=== PATIENT | male | born 1980 | race Caucasian/White ===

== ENCOUNTER → 2016-03-19 | Outpatient (CLI) | payer OTHER ==
--- NOTE | 2016-03-19 15:35 | US ---
EXAMINATION TYPE: US liver DATE OF EXAM: 03/19/2016 8:11 AM COMPARISON: NONE CLINICAL HISTORY: Abnormal liver function; H/O cholecystectomy 1999; H/O high cholesterol, on meds . EXAM MEASUREMENTS: Liver Length: 17.9 cm Gallbladder Wall: surgically absent CBD: 0.7 cm Right Kidney: 11.2 x 4.4 x 6.0 cm ANATOMY: TECHNOLOGIST IMPRESSION: liver attenuating indicative of fatty infiltrate Pancreas: Obscured by bowel gas Liver: attenuating Gallbladder: Surgically absent Evidence for sonographic Brock's sign: no CBD: 0.7 cm Right Kidney: No hydronephrosis or masses seen IMPRESSION: 1. Mild hepatomegaly at 17.9 cm.
== END | disposition home or self-care (01) ==
LOC: RADUSWWP 07:55
PROVIDERS: ATTEND Internal Medicine
DX: R79.89 Other specified abnormal findings of blood chemistry (principal)
CPT/HCPCS: 76705

== ENCOUNTER 2016-03-29 15:46 | Inpatient (IN) | payer MEDICAID, OTHER ==
--- NOTE | 2016-03-29 16:09 | ED ---
Psych HPI - General Chief Complaint: Psychiatric Symptoms Stated Complaint: Mental Health Time Seen by Provider: 03/29/16 15:54 Source: patient, RN notes reviewed Mode of arrival: ambulatory Limitations: no limitations - History of Present Illness Initial Comments: 35-year-old male presents emergency Department from urinalysis for psychiatric evaluation. Patient was threatening to hurt himself with his razor. Patient denies any homicidal thoughts. Patient states that he is admitted recently l for psychiatric problems. Patient states he was suicidal at that time. Patient states he self harm to self up his abdomen. Patient denies any physical complaints at this time. Patient states he does not feel right. Patient is taking his medications as prescribed. - Related Data Home Medications Medication Instructions Recorded Confirmed Levothyroxine Sodium [Synthroid] 50 mcg PO DAILY 02/25/16 03/29/16 Pravastatin Sodium [Pravachol] 20 mg PO DAILY 02/26/16 03/29/16 OXcarbazepine [Trileptal] 600 mg PO BID 03/29/16 03/29/16 Previous Rx's Medication Instructions Recorded Amantadine HCl [Symmetrel] 200 mg PO HS #60 cap 02/28/16 Citalopram Hydrobromide [CeleXA] 40 mg PO DAILY #30 tablet 02/28/16 traZODone HCL [Desyrel] 100 mg PO HS #30 tab 02/28/16 Allergies Allergy/AdvReac Type Severity Reaction Status Date / Time latex Allergy Intermediate Rash/Hives Verified 03/29/16 16:06 Penicillins Allergy Vomiting Verified 03/29/16 16:06 Review of Systems ROS Statement: Those systems with pertinent positive or pertinent negative responses have been documented in the HPI. ROS Other: All systems not noted in ROS Statement are negative. Past Medical History Past Medical History: Hyperlipidemia, Seizure Disorder, Thyroid Disorder Additional Past Medical History / Comment(s): depression History of Any Multi-Drug Resistant Organisms: None Reported Past Surgical History: Orthopedic Surgery Additional Past Surgical History / Comment(s): shoulder Past Psychological History: Depression Smoking Status: Never smoker Past Alcohol Use History: None Reported Past Drug Use History: None Reported General Exam Limitations: no limitations General appearance: alert, in no apparent distress Eye exam: Present: normal appearance, PERRL, EOMI. Absent: scleral icterus, conjunctival injection, periorbital swelling ENT exam: Present: normal exam, normal oropharynx, mucous membranes moist, TM's normal bilaterally Neck exam: Present: normal inspection, full ROM. Absent: tenderness, meningismus, lymphadenopathy Respiratory exam: Present: normal lung sounds bilaterally. Absent: respiratory distress, wheezes, rales, rhonchi, stridor Cardiovascular Exam: Present: regular rate, normal rhythm, normal heart sounds. Absent: systolic murmur, diastolic murmur, rubs, gallop, clicks GI/Abdominal exam: Present: soft, normal bowel sounds. Absent: distended, tenderness, guarding, rebound, rigid Neurological exam: Present: alert, oriented X3 Skin exam: Present: warm, dry, intact, normal color. Absent: rash Course Vital Signs 03/29/16 03/29/16 15:47 18:04 Temperature 97.8 F Pulse Rate 79 78 Respiratory 20 20 Rate Blood Pressure 158/84 132/65 O2 Sat by Pulse 99 98 Oximetry Medical Decision Making - Lab Data Lab Results 03/29/16 Range/Units 16:43 Urine Opiates Screen Not Detected (NotDetected) Ur Oxycodone Screen Not Detected (NotDetected) Urine Methadone Screen Not Detected (NotDetected) Ur Propoxyphene Screen Not Detected (NotDetected) Ur Barbiturates Screen Not Detected (NotDetected) U Tricyclic Antidepress Not Detected (NotDetected) Ur Phencyclidine Scrn Not Detected (NotDetected) Ur Amphetamines Screen Not Detected (NotDetected) U Methamphetamines Scrn Not Detected (NotDetected) U Benzodiazepines Scrn Not Detected (NotDetected) Urine Cocaine Screen Not Detected (NotDetected) U Marijuana (THC) Screen Not Detected (NotDetected) Disposition Clinical Impression: Depression, Suicidal ideation Disposition: ADMITTED IP TO THIS HOSP Condition: Stable
[2016-03-29] MEDS ORDERED: ZIPRASIDONE 20 MG VIAL IM PRN (21:42)
[2016-03-29] MEDS ORDERED: MAGNESIUM HYDROXIDE 2,400 MG/10 ML CUP PO PRN (21:42)
[2016-03-29] MEDS ORDERED: ACETAMINOPHEN TAB 325 MG TAB PO PRN (21:42)
[2016-03-29] MEDS ORDERED: MAG HYDROX/AL HYDROX/SIMETH 30 ML CUP PO PRN (21:42)
[2016-03-29 22:45] VITALS: BMI 29.5
[2016-03-30] MEDS ORDERED: LEVOTHYROXINE 50 MCG TAB PO SCH ×2 (06:30→15:47)
[2016-03-30] MEDS: PRAVASTATIN SODIUM 20 MG TAB PO SCH (09:59)
[2016-03-30] MEDS: OXcarbazepine 300 MG TAB PO SCH ×2 (10:00→21:54)
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
[2016-03-30] MEDS: buPROPion SR 150 MG TABLET.ER PO SCH (10:56)
[2016-03-30 12:06] LABS: Basophils # (A) 0.1 k/uL (0-0.2); Basophils % (A) 1 %; Eosinophils # (A) 0.1 k/uL (0-0.7); Eosinophils % (A) 1 %; HCT 49.3 % (39.0-53.0); HDW 2.37; HGB 16.6 gm/dL (13.0-17.5); Luc # (Auto) 0.09; Luc % (Auto) 1; Lymphocytes # (A) 1.9 k/uL (1.0-4.8); Lymphocytes % (A) 27 %; MCH 31.8 pg (25.0-35.0); MCHC 33.6 g/dL (31.0-37.0); MCV 94.6 fL (80.0-100.0); Mean Platelet Volume 8.3; Monocytes # (A) 0.4 k/uL (0-1.0); Monocytes % (A) 6 %; Neutrophils # (A) 4.5 k/uL (1.3-7.7); Neutrophils % (A) 64 %; RBC 5.21 m/uL (4.30-5.90); RDW 12.2 % (11.5-15.5); WBC (Perox) 7.22
[2016-03-30 12:23] LABS: ALT 57 U/L (21-72); AST 59 U/L (17-59); Alkaline Phosphatase 99 U/L (38-126); Anion Gap 12 mmol/L; Blood Urea Nitrogen 13 mg/dL (9-20); Calcium 10.7 mg/dL (8.4-10.2); Carbon Dioxide 29 mmol/L (22-30); Chloride 99 mmol/L (98-107); Glucose 105 mg/dL (74-99); Non-African American GFR(MDRD) >60 (>60 ml/min/1.73 sqM); Potassium 4.8 mmol/L (3.5-5.1); Sodium 140 mmol/L (137-145); Total Bilirubin 0.8 mg/dL (0.2-1.3); Total Protein 8.8 g/dL (6.3-8.2)
--- NOTE | 2016-03-30 17:02 | CONS ---
DATE OF CONSULTATION: REASON FOR CONSULTATION: Medical clearance. Patient is a 35-year-old pleasant gentleman is admitted to psychiatric floor for agitation and acute psychosis. Patient at this point of time does not have any medical complaints at this point of time. Patient denied any fever, chills. Patient denied nausea, vomiting. His significant medical problems include hyperlipidemia, seizure disorder, hypothyroidism. I obtained a TSH which was essentially within normal limits and patient does not have any recent seizures. Patient's creatinine is elevated to 1.23. His baseline creatinine is around 1.1. Patient is probably mildly dehydrated. I encouraged him to drink water p.o. REVIEW OF SYSTEMS: CONSTITUTIONAL: No fever, no malaise, no fatigue. HEENT: No recent visual problems or hearing problems. Denied any sore throat. CARDIOVASCULAR: No chest pain, orthopnea, PND, no palpitations, no syncope. PULMONARY: No shortness of breath, no cough, no hemoptysis. GASTROINTESTINAL: No diarrhea, no nausea, no vomiting, no abdominal pain. Normoactive bowel sounds. NEUROLOGICAL: No headaches, no weakness, no numbness. HEMATOLOGICAL: Denies any bleeding or petechiae. GENITOURINARY: Denies any burning micturition, frequency, or urgency. MUSCULOSKELETAL/RHEUMATOLOGICAL: Denies any joint pain, swelling, or any muscle pain. ENDOCRINE: Denies any polyuria or polydipsia. The rest of the 14 point review of systems is negative. PAST MEDICAL HISTORY: Hyperlipidemia, seizure disorder, hypothyroidism, depression, orthopedic surgery in the past. SOCIAL HISTORY: Patient denies smoking, alcohol abuse or any drug abuse. FAMILY HISTORY: Denied any family history of hypertension, diabetes mellitus or stroke or CVAs or myocardial infarction in the family. PHYSICAL EXAMINATION: VITAL SIGNS: Temperature 98.2, pulse 64, respiratory rate of 15, blood pressure 139/70, saturating at 96% room air. GENERAL: The patient is alert and oriented x3, not in any acute distress. Well developed, well nourished. HEENT: Pupils are round and equally reacting to light. EOMI. No scleral icterus. No conjunctival pallor. Normocephalic, atraumatic. No pharyngeal erythema. No thyromegaly. CARDIOVASCULAR: S1 and S2 present. No murmurs, rubs, or gallops. PULMONARY: Chest is clear to auscultation, no wheezing or crackles. ABDOMEN: Soft, nontender, nondistended, normoactive bowel sounds. No palpable organomegaly. MUSCULOSKELETAL: No joint swelling or deformity. EXTREMITIES: No cyanosis, clubbing, or pedal edema. NEUROLOGICAL: Gross neurological examination did not reveal any focal deficits. SKIN: No rashes. LABORATORY DATA: CBC, CMP abnormal for mildly elevated creatinine of 1.23. ASSESSMENT AND PLAN: 1. Acute psychosis. Management as per primary service. 2. Acute renal failure, probably due to intravascular volume depletion. Patient encouraged to drink water p.o. 3. Hypothyroidism. Continue with levothyroxine at present dose. TSH is essentially within normal limits. 4. Hyperlipidemia. Continue with pravastatin. 5. Seizure disorder for which patient is on Trileptal. Patient is tolerating well at this point of time. Recommend to continue that and patient does not have any recent seizures. 6. We will sign off at this point of time. Please call us back if needed with any questions.
[2016-03-30] MEDS: traZODone HCL 100 MG TAB PO SCH (21:54)
[2016-03-30] MEDS: AMANTADINE HCL 100 MG CAP PO SCH (21:54)
[2016-03-31] MEDS: LEVOTHYROXINE 50 MCG TAB PO SCH (06:08)
[2016-03-31] MEDS: buPROPion SR 150 MG TABLET.ER PO SCH (09:17)
[2016-03-31] MEDS: OXcarbazepine 300 MG TAB PO SCH ×2 (09:18→21:41)
[2016-03-31] MEDS: PRAVASTATIN SODIUM 20 MG TAB PO SCH (09:18)
--- NOTE | 2016-03-31 15:16 | P.PN ---
Progress Note - Text Interval history: Patient is seen in cross coverage today for Dr. Stubbs. He does report that he is feeling better. He is now on Wellbutrin XL instead of Celexa. He states he has been on Wellbutrin in the past. He slept about 6 hours last night. He does not seem to voice any adverse psychotropic medication side effects. Mental status exam: He is alert and cooperative with the interview. Overall his affect is restricted. His mood is improved. He denies any thoughts of harm to self or others. There is no active evidence of psychosis or agitation. His thought processes are organized. Plan: Patient will be maintained on current psychotropic medication regimen. We 'll continue to cover this patient for Dr. Stubbs through the weekend. We' ll continue to monitor regarding any thoughts of suicide. Monitor for any medication side effects.
[2016-03-31] MEDS: traZODone HCL 100 MG TAB PO SCH (21:41)
[2016-03-31] MEDS: AMANTADINE HCL 100 MG CAP PO SCH (21:41)
[2016-04-01] MEDS: LEVOTHYROXINE 50 MCG TAB PO SCH (06:04)
[2016-04-01] MEDS: OXcarbazepine 300 MG TAB PO SCH ×2 (09:47→21:01)
[2016-04-01] MEDS: buPROPion SR 150 MG TABLET.ER PO SCH (09:47)
[2016-04-01] MEDS: PRAVASTATIN SODIUM 20 MG TAB PO SCH (09:47)
--- NOTE | 2016-04-01 14:01 | P.PN ---
Progress Note - Text Interval history: Patient reports that his mood was down last night, but does feel like his mood is doing better today. He describes some lightheadedness he feels some relation to the Wellbutrin but it appears to be tolerable. We did discuss the side effects can improve as he continues to adjust to the medication. He did seem to sleep last night and appears to be eating well. He does describe symptoms prior to coming in the hospital that he was having thoughts of stabbing himself and was hitting himself in the face. He is seen in cross coverage today for Dr. Stubbs. Mental status exam: He is alert and cooperative with the interview. His speech is fluent, not rapid or pressured. Thought processes organized. His mood he describes feeling down last night but appears to be better today. He denies any thoughts of harm to self or others. No evidence of active psychosis or agitation. Plan: We'll maintain current psychotropic medication regimen. Continue to monitor for medication side effects. Continue to monitor regarding any thoughts of suicide. Dr. Stubbs to resume care this patient starting tomorrow.
[2016-04-01] MEDS: traZODone HCL 100 MG TAB PO SCH (21:01)
[2016-04-01] MEDS: AMANTADINE HCL 100 MG CAP PO SCH (21:01)
[2016-04-02] MEDS: LEVOTHYROXINE 50 MCG TAB PO SCH (05:43)
[2016-04-02 06:16] VITALS: TEMP 97.5
[2016-04-02] MEDS: OXcarbazepine 300 MG TAB PO SCH (08:43)
[2016-04-02] MEDS: buPROPion SR 150 MG TABLET.ER PO SCH (08:43)
[2016-04-02] MEDS: PRAVASTATIN SODIUM 20 MG TAB PO SCH (08:43)
[2016-04-02 08:47] VITALS: BP 130/69; PULSE 69; RESP 18
--- NOTE | 2016-04-04 09:55 | DS ---
DATE OF ADMISSION: 03/29/2016 DATE OF DISCHARGE: 04/02/2016 PSYCHIATRY DISCHARGE SUMMARY: ADMISSION AND DISCHARGE DIAGNOSES: 1. Depressive disorder. 2. Adjustment disorder with disturbance of mood and behavior. 3. Antisocial personality disorder. 4. Seizure disorder. HISTORY OF PRESENTING ILLNESS: The patient presented to the emergency department in referral from his counselor at [facility] and his data officer. He was having increasing problems with anxiety, anger and agitation. He was indicating that he felt frustrated over rules at the home that he felt were arbitrary. He made a threat that he would use a razor or shards of plastic to cut himself. The unit was informed that upon discharge the patient would be going to [facility] for parole violation of "intimidating staff at [facility]". Patient was having problems with sleep. He had depressed mood with loss of motivation, energy and interest. He had noted this was his fourth psychiatric hospitalization. He was discharged February 28, 2016 with a similar diagnosis. He had recently been released from long term just prior to the February admission. He denied use of alcohol or drugs and reported that he had never been in a substance abuse program. There was significant family history of psychiatric and substance abuse problems mainly with his mother and a cousin. He was on parole for assault on a police service technician and third offense of domestic violence. He was released from long term in February 21, 2016. MEDICAL HISTORY AND PHYSICAL EXAM: As per medical consultation of Dr. Red dated 03/30/2016. MENTAL STATUS: Patient had fair eye contact. He had depressed facial expression. He was alert and oriented. There was slight psychomotor retardation. There were no abnormal movements. His affect was depressed and nonreactive. He denied suicide or self harm thoughts. He had feelings of hopelessness and helplessness. There were no psychotic symptoms. DIAGNOSTIC STUDY: CBC was unremarkable. Hemoglobin 16.6, MCV 94.6. Comprehensive metabolic profile was unremarkable. His glucose of 105. Creatinine 1.2. TSH 2.5. Urine drug screen negative. COURSE OF HOSPITALIZATION: Patient was admitted for comprehensive medical, psychiatric and psychosocial evaluation. He was continued on Trileptal 600 mg twice a day and trazodone 100 mg for sleep. He was also on amantadine 200 mg at bedtime. He was started on Wellbutrin SR 150 mg a day and Celexa 40 mg a day, which he had been on previously. During the course of his hospital stay, he did fairly well. He showed improvement in his mood. He was sleeping fairly well. Symptoms of depression seem to recede fairly reasonably. He tolerated his psychotropic medications well. He identified the plans for discharge. He understood that he would be going back to [facility], though he felt that he had legitimate concerns about issues that transpired at [facility]. His plan was to talk to his data officer. He anticipated a short [facility] term and then aim to potentially get back into a half-way house. CONDITION AT DISCHARGE: The patient was stable at discharge. His mood was improved. He was identifying no thoughts of harm to self or others. He tolerated his medications well. RECOMMENDATIONS AND FOLLOWUP: Patient was referred to police custody as per his data officer. DISCHARGE HER MEDICATIONS: 1. Celexa 40 mg a day. 2. Wellbutrin SR 150 mg a day. 3. Trileptal 600 mg twice a day. 4. Trazodone 100 mg at bedtime. 5. Amantadine 200 mg at bedtime. 6. Pravachol 20 mg a day. The patient was discharged to police custody.
== END 2016-04-02 13:01 | DRG 881 ==
LOC: EC 15:46 → 3MHU 19:25
PROVIDERS: ADMIT Psychiatry & Neurology Psychiatry; ATTEND Psychiatry & Neurology Psychiatry
DX: F32.9 Major depressive disorder, single episode, unspecified (principal); N17.9 Acute kidney failure, unspecified; R45.851 Suicidal ideations; M41.9 Scoliosis, unspecified; G40.409 Other generalized epilepsy and epileptic syndromes, not intractable, without status epilepticus; F60.2 Antisocial personality disorder; F43.24 Adjustment disorder with disturbance of conduct; E03.9 Hypothyroidism, unspecified; E78.5 Hyperlipidemia, unspecified; E86.0 Dehydration; R74.8 Abnormal levels of other serum enzymes; F41.9 Anxiety disorder, unspecified; E78.00 Pure hypercholesterolemia, unspecified; G25.81 Restless legs syndrome; Z91.5 Personal history of self-harm; Z65.3 Problems related to other legal circumstances; Z88.0 Allergy status to penicillin; Z91.040 Latex allergy status; Z79.899 Other long term (current) drug therapy; Z81.8 Family history of other mental and behavioral disorders; Z81.3 Family history of other psychoactive substance abuse and dependence
CPT/HCPCS: 80053; 80306; 82075; 84443; 85025; 99284

== ENCOUNTER 2016-07-10 22:53 | Emergency (ER) | payer MEDICAID, OTHER ==
[2016-07-10 23:13] VITALS: RESP 16; TEMP 97.8
--- NOTE | 2016-07-10 23:17 | ED ---
General Adult HPI - General Chief complaint: Overdose Stated complaint: overdose Time Seen by Provider: 07/10/16 23:03 Source: patient, RN notes reviewed, old records reviewed Mode of arrival: EMS Limitations: no limitations - History of Present Illness Initial comments: This is a 36-year-old male here today for evaluation. This patient presents for evaluation of possible overdose, overdose unintentional. Patient has history of psychiatric disease, tach extracted translocated or to today, that is abraded to harm himself. Patient states he was is throughout the day and when he got before is that he took one of his medication, patient currently states he feels little bit tired but no other complaints. Denies any other drugs or alcohol - Related Data Previous Rx's Medication Instructions Recorded Amantadine HCl [Symmetrel] 200 mg PO HS 30 Days 04/02/16 Citalopram Hydrobromide [CeleXA] 40 mg PO DAILY 30 Days 04/02/16 OXcarbazepine [Trileptal] 600 mg PO BID 30 Days 04/02/16 Pravastatin Sodium [Pravachol] 20 mg PO DAILY #30 tab 04/02/16 buPROPion SR [Wellbutrin SR] 150 mg PO DAILY 30 Days 04/02/16 traZODone HCL [Desyrel] 100 mg PO HS 30 Days 04/02/16 Allergies Allergy/AdvReac Type Severity Reaction Status Date / Time latex Allergy Intermediate Rash/Hives Verified 07/10/16 23:12 Penicillins Allergy Vomiting Verified 07/10/16 23:12 Review of Systems ROS Statement: Those systems with pertinent positive or pertinent negative responses have been documented in the HPI. ROS Other: All systems not noted in ROS Statement are negative. Past Medical History Past Medical History: Hyperlipidemia, Seizure Disorder, Thyroid Disorder Additional Past Medical History / Comment(s): depression History of Any Multi-Drug Resistant Organisms: None Reported Past Surgical History: Orthopedic Surgery Additional Past Surgical History / Comment(s): right shoulder Past Psychological History: Depression Smoking Status: Never smoker Past Alcohol Use History: None Reported Past Drug Use History: None Reported General Exam Limitations: no limitations General appearance: alert, in no apparent distress Head exam: Present: atraumatic, normocephalic, normal inspection Eye exam: Present: normal appearance, PERRL, EOMI. Absent: scleral icterus, conjunctival injection, periorbital swelling ENT exam: Present: normal exam, mucous membranes moist Neck exam: Present: normal inspection. Absent: tenderness, meningismus, lymphadenopathy Respiratory exam: Present: normal lung sounds bilaterally. Absent: respiratory distress, wheezes, rales, rhonchi, stridor Cardiovascular Exam: Present: regular rate, normal rhythm, normal heart sounds. Absent: systolic murmur, diastolic murmur, rubs, gallop, clicks GI/Abdominal exam: Present: soft, normal bowel sounds. Absent: distended, tenderness, guarding, rebound, rigid Extremities exam: Present: normal inspection, full ROM, normal capillary refill. Absent: tenderness, pedal edema, joint swelling, calf tenderness Back exam: Present: normal inspection Neurological exam: Present: alert, oriented X3, CN II-XII intact Psychiatric exam: Present: normal affect, normal mood Skin exam: Present: warm, dry, intact, normal color. Absent: rash Course Vital Signs 07/10/16 23:05 Temperature 97.8 F Pulse Rate 55 L Respiratory 16 Rate Blood Pressure 113/65 O2 Sat by Pulse 95 Oximetry - Reevaluation(s) Reevaluation #1: 07/10/16 23:16 Patient denies feeling suicidal at this time. Denies taking any medications and suicide attempt Medical Decision Making - Medical Decision Making 36-year-old ER for evaluation, patient coming in for evaluation of potential overdose, unintentional, patient states he took an extra trazodone and he normally takes. Patient is asymptomatic at this time vital signs are normal and stable, awake and alert and patient can be discharged home Disposition Clinical Impression: Accidental drug ingestion Disposition: HOME SELF-CARE Condition: Good Instructions: Trazodone (By mouth) Referrals: Phillip Wooten MD [Primary Care Provider] - 1-2 days
[2016-07-11 00:44] VITALS: BP 129/79; PULSE 63
== END 2016-07-11 00:44 | disposition home or self-care (01) ==
LOC: EC 22:53
DX: T43.211A Poisoning by selective serotonin and norepinephrine reuptake inhibitors, accidental (unintentional), initial encounter (principal); Z88.0 Allergy status to penicillin; Z91.040 Latex allergy status
CPT/HCPCS: 99284

== ENCOUNTER 2021-08-14 15:23 | Emergency (ER) | payer MEDICAID, OTHER ==
--- NOTE | 2021-08-14 18:34 | ED ---
General Adult HPI - General Chief complaint: Skin/Abscess/Foreign Body Stated complaint: Skin Rash hands/feet Source: patient Mode of arrival: ambulatory Limitations: no limitations - History of Present Illness Initial comments: A 1-year-old male presents emergency department for a rash that has been going on for 1 week. States that it started while he was incarcerated. It is located on the dorsal aspects of his bilateral hands and extends up his forearms. Rash is also noted on the patient's ankles and calf. No palmar or plantar lesions noted. States that they are extremely pruritic. He was given permethrin cream and hydrocortisone cream for treatment. States that he has not had any relief. Denies any new exposures. No fevers or shortness of breath. No other a lleviating, precipitating or modifying factors - Related Data Previous Rx's Medication Instructions Recorded Citalopram Hydrobromide [CeleXA] 40 mg PO DAILY 30 Days tablet 04/02/16 OXcarbazepine [Trileptal] 600 mg PO BID 30 Days tab 04/02/16 Pravastatin Sodium [Pravachol] 20 mg PO DAILY #30 tab 04/02/16 amantadine HCL [Symmetrel] 200 mg PO HS 30 Days cap 04/02/16 buPROPion SR [Wellbutrin SR] 150 mg PO DAILY 30 Days tablet.er 04/02/16 traZODone HCL [Desyrel] 100 mg PO HS 30 Days tab 04/02/16 Permethrin 5% Cream [Elimite] 1 applic TOPICAL ONCE #60 gram 08/14/21 Triamcinolone 0.1% Cream [Kenalog 1 applicatio TOPICAL TID #30 gram 08/14/21 0.1% Cream] diphenhydrAMINE [Benadryl] 50 mg PO QID PRN #30 capsule 08/14/21 predniSONE [Deltasone] 20 mg PO BID #10 tab 08/14/21 Allergies Allergy/AdvReac Type Severity Reaction Status Date / Time latex Allergy Intermediate Rash/Hives Verified 08/14/21 16:53 Penicillins Allergy Vomiting Verified 08/14/21 16:53 Review of Systems ROS Statement: Those systems with pertinent positive or pertinent negative responses have been documented in the HPI. ROS Other: All systems not noted in ROS Statement are negative. Past Medical History Past Medical History: Hyperlipidemia, Seizure Disorder, Thyroid Disorder Additional Past Medical History / Comment(s): depression History of Any Multi-Drug Resistant Organisms: None Reported Past Surgical History: Orthopedic Surgery Additional Past Surgical History / Comment(s): shoulder Past Psychological History: Depression Smoking Status: Never smoker Past Alcohol Use History: None Reported Past Drug Use History: None Reported General Exam Limitations: no limitations Course Vital Signs 08/14/21 08/14/21 16:38 18:50 Temperature 97.7 F 98.4 F Pulse Rate 55 L 59 L Respiratory 20 18 Rate Blood Pressure 130/79 119/76 O2 Sat by Pulse 100 99 Oximetry Medical Decision Making - Medical Decision Making Upon arrival the patient was placed into hallway 22. A thorough history and physical exam was performed. Patient's rash does appear to be consistent with either contact dermatitis or scabies. He'll be given prescription for Kenalog cream, permethrin cream, prednisone and Benadryl. He is to take the Benadryl and prednisone as prescribed. Additionally use the Kenalog cream. He does not have improvement in his rash and 72 hours he is to use the permethrin cream again. He is given follow-up information for the [facility]. He'll be given a follow-up with him for further management return for any new or worsening symptoms per patient agreed and was discharged home in stable condition Disposition Clinical Impression: Scabies, Contact dermatitis Disposition: HOME SELF-CARE Condition: Stable Instructions (If sedation given, give patient instructions): Acute Rash (ED) Additional Instructions: Please use the prednisone, Benadryl and Kenalog cream as directed. If you do not have improvement in your rash within 72 hours, used the permethrin cream. Follow up with the [facility] for further evaluation and return for any new or worsening symptoms Prescriptions: diphenhydrAMINE [Benadryl] 50 mg PO QID PRN #30 capsule PRN Reason: Itching predniSONE [Deltasone] 20 mg PO BID #10 tab Permethrin 5% Cream [Elimite] 1 applic TOPICAL ONCE #60 gram Triamcinolone 0.1% Cream [Kenalog 0.1% Cream] 1 applicatio TOPICAL TID #30 gram Is patient prescribed a controlled substance at d/c from ED?: No Referrals: None,Stated [Primary Care Provider] - 1-2 days Angel Yin MD [STAFF PHYSICIAN] - 1-2 days Time of Disposition: 18:34
[2021-08-14 18:51] VITALS: BP 119/76; PULSE 59; RESP 18; TEMP 98.4
== END 2021-08-14 18:51 | disposition home or self-care (01) ==
LOC: EC 15:23
DX: B86 Scabies (principal); L25.9 Unspecified contact dermatitis, unspecified cause; E78.5 Hyperlipidemia, unspecified; G40.909 Epilepsy, unspecified, not intractable, without status epilepticus; F32.A Depression, unspecified; Z79.899 Other long term (current) drug therapy; Z88.0 Allergy status to penicillin
CPT/HCPCS: 99282

== ENCOUNTER 2021-09-21 13:23 | Emergency (ER) | payer OTHER ==
[2021-09-21] MEDS ORDERED: diphenhydrAMINE 50 MG CAP PO STA (13:51)
[2021-09-21] MEDS ORDERED: predniSONE 50 MG TAB PO STA (13:51)
--- NOTE | 2021-09-21 13:58 | ED ---
General Adult HPI - General Chief complaint: Skin/Abscess/Foreign Body Stated complaint: [facility] - allergic reaction Time Seen by Provider: 09/21/21 13:30 Source: patient, RN notes reviewed, old records reviewed Mode of arrival: ambulatory Limitations: no limitations - History of Present Illness Initial comments: Patient comes in complaining of a rash on bilateral arms and the right side of his neck and trapezius area. Patient states he was carrying using carpet at work and that gave him this rash. Patient states it's irritated and causes him to itch quite a bit. Patient has no other rash anywhere else. Patient denies any difficulty breathing or swallowing. Patient denies any swelling to the throat. Patient states he only place he has a rash as were his hands and neck came in contact with the carpet. Patient denies any fever chills or cough. - Related Data Previous Rx's Medication Instructions Recorded Citalopram Hydrobromide [CeleXA] 40 mg PO DAILY 30 Days tablet 04/02/16 OXcarbazepine [Trileptal] 600 mg PO BID 30 Days tab 04/02/16 Pravastatin Sodium [Pravachol] 20 mg PO DAILY #30 tab 04/02/16 amantadine HCL [Symmetrel] 200 mg PO HS 30 Days cap 04/02/16 buPROPion SR [Wellbutrin SR] 150 mg PO DAILY 30 Days tablet.er 04/02/16 traZODone HCL [Desyrel] 100 mg PO HS 30 Days tab 04/02/16 Permethrin 5% Cream [Elimite] 1 applic TOPICAL ONCE #60 gram 08/14/21 Triamcinolone 0.1% Cream [Kenalog 1 applicatio TOPICAL TID #30 gram 08/14/21 0.1% Cream] diphenhydrAMINE [Benadryl] 50 mg PO QID PRN #30 capsule 08/14/21 predniSONE [Deltasone] 20 mg PO BID #10 tab 08/14/21 predniSONE [Deltasone] 40 mg PO DAILY #8 tab 09/21/21 Allergies Allergy/AdvReac Type Severity Reaction Status Date / Time latex Allergy Intermediate Rash/Hives Verified 09/21/21 13:32 Penicillins Allergy Vomiting Verified 09/21/21 13:32 Review of Systems ROS Statement: Those systems with pertinent positive or pertinent negative responses have been documented in the HPI. ROS Other: All systems not noted in ROS Statement are negative. Past Medical History Past Medical History: Hyperlipidemia, Seizure Disorder, Thyroid Disorder Additional Past Medical History / Comment(s): depression History of Any Multi-Drug Resistant Organisms: None Reported Past Surgical History: Orthopedic Surgery Additional Past Surgical History / Comment(s): shoulder Past Psychological History: Depression Smoking Status: Never smoker Past Alcohol Use History: None Reported Past Drug Use History: None Reported General Exam - General Exam Comments Initial Comments: GENERAL Patient is well-developed and well-nourished. Patient is in mild distress. EYES Patient's pupils are equal and round. Extraocular motion is intact SKIN Patient has contact dermatitis bilateral forearms and right trapezius muscle area. NEURO The patient is alert and oriented 3 PYSCH Patient has normal interpersonal interactions. MUSCULOSKELETAL Patient is all 4 extremities with full range of motion Limitations: no limitations Course Vital Signs 09/21/21 13:28 Temperature 98.5 F Pulse Rate 78 Respiratory 20 Rate Blood Pressure 137/78 O2 Sat by Pulse 97 Oximetry Disposition Clinical Impression: Contact dermatitis Disposition: HOME SELF-CARE Condition: Good Instructions (If sedation given, give patient instructions): Contact Dermatitis (ED) Additional Instructions: Patient should take Benadryl when necessary Prescriptions: predniSONE [Deltasone] 40 mg PO DAILY #8 tab Is patient prescribed a controlled substance at d/c from ED?: No Referrals: [facility] [Primary Care Provider] - 1-2 days Time of Disposition: 13:58
[2021-09-21 14:25] LABS: Glucose,Whole Blood 136 mg/dL (70-110)
[2021-09-21 14:48] VITALS: BP 148/87; PULSE 57; RESP 18; TEMP 98.4
== END 2021-09-21 14:09 | disposition home or self-care (01) ==
LOC: EC 13:23
DX: L24.89 Irritant contact dermatitis due to other agents (principal); E78.5 Hyperlipidemia, unspecified; E07.9 Disorder of thyroid, unspecified; F41.9 Anxiety disorder, unspecified; Z88.0 Allergy status to penicillin; Z91.040 Latex allergy status; Z79.899 Other long term (current) drug therapy
CPT/HCPCS: 36415; 99283; J7512